=== PATIENT | male | born 1990 | race Caucasian/White ===

== ENCOUNTER 2017-06-29 02:57 | Emergency (ER) | payer SELFPAY ==
[2017-06-29] MEDS ORDERED: OLANZapine DISINTEGR 5 MG TAB PO ONE (03:00)
--- NOTE | 2017-06-29 03:02 | EDPHY ---
H & P Source: Patient, EMS HPI/ROS: HPI CHIEF COMPLAINT: Mike HISTORY OF PRESENT ILLNESS: This patient very pleasant 26-year-old male, history of bipolar disorder with mike, he states he does not take any daily medications he presents emergency room by EMS after he was seen and placed on a M1 hold [facility]. Upon arrival the patient is pleasant and Calm , however he is manic. He is suicidal and homicidal. He states he does not take any medication for his bipolar. He states "he controls it internally" Past Medical History: Denies medical history except for bipolar disorder Past Surgical History: Denies surgical history Social History: Denies daily use drugs alcohol tobacco products. Family History: Noncontributory. ROS REVIEW OF SYSTEMS: A comprehensive 10 point review of systems is otherwise negative aside from elements mentioned in the history of present illness. Exam Constitutional appears well nontoxic, triage nursing summary reviewed, vital signs reviewed, awake/alert. Eyes normal conjunctivae and sclera, EOMI, PERRLA. HENT normal inspection, atraumatic, moist mucus membranes, no epistaxis, neck supple/ no meningismus, no raccoon eyes. Respiratory clear to auscultation bilaterally, normal breath sounds, no respiratory distress, no wheezing. Cardiovascular rate normal, regular rhythm, no murmur, no edema, distal pulses normal. Gastrointestinal soft, non-tender, no rebound, no guarding, normal bowel sounds, no distension, no pulsatile mass. Genitourinary no CVA tenderness. Musculoskeletal no midline vertebral tenderness, full range of motion, no calf swelling, no tenderness of extremities, no meningismus, good pulses, neurovascularly intact. Skin INK Pen writing all over, pink, warm, & dry, no rash, skin atraumatic. Neurologic awake, alert and oriented x 3, AAOx3, moves all 4 extremities equally, motor intact, sensory intact, CN II-XII intact, normal cerebellar, normal vision, normal speech. Psychiatric acutely manic with pressured speech, tangential thoughts. Heme/Lymph/Immune no lymphadenopathy. Differential Diagnosis: Includes but is not limited to in a particular order acute psychosis subacute media, bipolar disorder, mood disorder, depression, suicidal ideation, substance abuse Medical Decision Making: Plan for this patient blood draw for medical clearance. Zyprexa 5 mg. Patient is on M1 hold and will need mental health placement. Re-evaluation: 0324AM: Patient on M1 hold. Pending Blood work and Urine, Will then Need MH eval as this was not done at Intake at the [facility], he was placed on an m1 for mike and sent here for further care. 0354: Patient medically cleared. 0700: Patient signed over at Dr. Frias at 7am Shift-change. Patient pending eval. (Gian Rodriguez) Constitutional: Initial Vital Signs Temperature (C) 37.4 C 06/29/17 03:11 Heart Rate 104 H 06/29/17 03:11 Respiratory Rate 20 06/29/17 03:11 Blood Pressure 134/77 H 06/29/17 03:11 O2 Sat (%) 97 06/29/17 03:11 O2 Delivery Mode Room Air Allergies/Adverse Reactions: No Known Allergies Allergy (Unverified 06/29/17 03:15) Home Medications: Medication Instructions Recorded NK [No Known Home Meds] 06/29/17 Medical Decision Making Other Provider: Care assumed at 6:[address] Rodriguez, patient arrives from detox on a mental health hold for bipolar and mike. Medically clear, still pending psychiatric evaluation. 1217: The patient will be transferred to [facility] for inpatient psychiatric hospital bed not available at this facility, in stable condition; accepting physician is Dr. Borrego. (Wilmer Frias) - Data Points Laboratory Results: Laboratory Results 06/29/17 03:10 06/29/17 03:10 06/29/17 06/29/17 06/29/17 03:26 03:10 03:10 WBC 7.56 10^3/uL 10^3/uL (3.80-9.50) RBC 4.84 10^6/uL 10^6/uL (4.40-6.38) Hgb 15.0 g/dL g/dL (13.7-17.5) Hct 42.5 % % (40.0-51.0) MCV 87.8 fL fL (81.5-99.8) MCH 31.0 pg pg (27.9-34.1) MCHC 35.3 g/dL g/dL (32.4-36.7) RDW 11.7 % % (11.5-15.2) Plt Count 299 10^3/uL 10^3/uL (150-400) MPV 10.3 fL fL (8.7-11.7) Neut % (Auto) 56.9 % % (39.3-74.2) Lymph % (Auto) 26.9 % % (15.0-45.0) Saline % (Auto) 14.8 % H % (4.5-13.0) Eos % (Auto) 0.8 % % (0.6-7.6) Baso % (Auto) 0.5 % % (0.3-1.7) Nucleat RBC Rel Count 0.0 % % (0.0-0.2) Absolute Neuts (auto) 4.30 10^3/uL 10^3/uL (1.70-6.50) Absolute Lymphs (auto) 2.03 10^3/uL 10^3/uL (1.00-3.00) Absolute Monos (auto) 1.12 10^3/uL H 10^3/uL (0.30-0.80) Absolute Eos (auto) 0.06 10^3/uL 10^3/uL (0.03-0.40) Absolute Basos (auto) 0.04 10^3/uL 10^3/uL (0.02-0.10) Absolute Nucleated RBC 0.00 10^3/uL 10^3/uL (0-0.01) Immature Gran % 0.1 % % (0.0-1.1) Immature Gran # 0.01 10^3/uL 10^3/uL (0.00-0.10) Sodium 144 mEq/L mEq/L (134-144) Potassium 4.0 mEq/L mEq/L (3.5-5.2) Chloride 105 mEq/L mEq/L (97-110) Carbon Dioxide 25 mEq/l mEq/l (22-31) Anion Gap 14 mEq/L mEq/L (8-16) BUN 32 mg/dL H mg/dL (7-23) Creatinine 1.2 mg/dL mg/dL (0.7-1.3) Estimated GFR > 60 Glucose 144 mg/dL H mg/dL (70-100) Calcium 10.1 mg/dL mg/dL (8.5-10.4) Urine Opiates Screen NEGATIVE (NEGATIVE) Urine Barbiturates NEGATIVE (NEGATIVE) Ur Phencyclidine Scrn NEGATIVE (NEGATIVE) Ur Amphetamine Screen NEGATIVE (NEGATIVE) U Benzodiazepines Scrn NEGATIVE (NEGATIVE) Urine Cocaine Screen NEGATIVE (NEGATIVE) U Marijuana (THC) Screen NEGATIVE (NEGATIVE) Ethyl Alcohol < 10 mg/dL mg/dL (0-10) Medications Given: Discontinued Medications Olanzapine (Zyprexa Zydis) 5 mg PO EDNOW ONE Stop: 06/29/17 03:01 Last Admin: 06/29/17 07:04 Dose: Not Given Departure - Departure Disposition: Other Psych, Not [place] Clinical Impression: Bipolar disorder Qualifiers: Active/Remission status: currently active Current bipolar episode type: manic Current episode severity: mild Qualified Code(s): F31.11 - Bipolar disorder, current episode manic without psychotic features, mild Condition: Good Instructions: Bipolar Disorder (ED) Referrals: Alina Sanchez MD [Medical Doctor] - As per Instructions
[2017-06-29 03:29] LABS: PLATELET COUNT 299 10^3/uL (150-400)
[2017-06-29 08:10] VITALS: RESP 16
[2017-06-29 15:03] VITALS: BP 135/80; PULSE 92; TEMP 98.6; O2SAT 97
== END 2017-06-29 15:03 ==
DX: F31.11 Bipolar disorder, current episode manic without psychotic features, mild (principal)
CPT/HCPCS: 80305; G0480